=== PATIENT | male | born 1975 | race Caucasian/White ===

== ENCOUNTER 2021-12-23 13:07 | Emergency (ER) | payer MEDICAID, OTHER ==
[~2021-12-23] VITALS: Ht 175.3 cm; Wt 77.3 kg
[~2021-12-23 13:07] MED LIST: CLOT15CR35 TP
[2021-12-23 13:22] VITALS: BP 147/101
[2021-12-23] MEDS ORDERED: cephalexin 250mg capsule PO ONE (15:25)
[2021-12-23] MEDS ORDERED: ketorolac trometh. 30mg/ml inj. IM ONE (15:25)
[2021-12-23] MEDS ORDERED: CEPH500C2 PO (16:08)
== END 2021-12-23 16:52 | disposition home or self-care (01) ==
LOC: ER 13:08
DX: G89.29 Other chronic pain (principal); M79.672 Pain in left foot; M21.611 Bunion of right foot; M20.41 Other hammer toe(s) (acquired), right foot; Z87.81 Personal history of (healed) traumatic fracture; Z79.2 Long term (current) use of antibiotics; Z79.899 Other long term (current) drug therapy
CPT/HCPCS: 73630; 96372; 99284; J1885